=== PATIENT | female | born 1945 | race American Indian/Alaskan Native ===

== ENCOUNTER 2016-12-16 12:01 | Observation (INO) | payer MEDICARE ==
[2016-12-16] MEDS ORDERED: Albuterol-Ipratrop 3 mg / 0.5 (3 ml) UD IH STA (13:10)
[2016-12-16] MEDS ORDERED: Sodium Chloride 0.9% 1,000 ML IV STA (13:10)
[2016-12-16 13:43] LABS: VENOUS BLOOD GAS BASE EXCESS 1.5 mmol/L (0.0-2.0); VENOUS BLOOD GAS PCO2 49 mmHg (40-60); VENOUS BLOOD PH 7.36 (7.32-7.43)
--- NOTE | 2016-12-16 13:43 | ED PDOC ---
HPI: CCC, URI, Sore Throat Chief Complaint (Provider): Cough History Per: Patient History/Exam Limitations: no limitations Onset/Duration Of Symptoms: Days (4) Current Symptoms Are (Timing): Still Present Location Of Pain: None Sick Contacts (Context): None Associated Symptoms: Chills, Cough, Sputum (clear), Nasal Congestion. denies: Fever, Sore Throat, Neck Pain, Nausea, Vomiting, Diarrhea Ear Symptoms: Bilateral: None Additional History Per: Patient <Jayna Viera - Last Filed: 12/16/16 15:09> <Tiburcio Vazquez - Last Filed: 12/16/16 15:30> Time Seen by Provider: 12/16/16 12:47 Chief Complaint (Nursing): Flu-like Symptoms Additional Complaint(s): 71 yo F with hx of HTN, DMII, OA, and asthma presents to ED with c/o cough x 4 days occasionally productive of clear sputum. Pt denies associated fever. Denies chest pain or SOB. States she has a hx of asthma and used to use symbicort and albuterol, but ran out of her inhalers > 1 month ago. Denies chest tightness or wheezing. Denies abdominal pain, N/V/D/C, but does c/o decreased appetite and malaise. ( Jayna Viera) Supervising Attending Note <Jayna Viera - Last Filed: 12/16/16 15:09> - Supervising Attending Note The Documented history was done by the: [facility] The documented physical exam was done by the: [facility] The documented procedures were done by the: [facility] - Attestation: I have personally seen and examined this patient.: Yes I have fully participated in the care of the patient.: Yes I have reviewed all pertinent clinical information, including history, physical exam and plan: Yes <Tiburcio Vazquez - Last Filed: 12/16/16 15:30> - Notes: Notes:: Cough. Weakness. (Tiburcio Vazquez) Past Medical History Reviewed: Historical Data, Nursing Documentation, Vital Signs - Medical History PMH: Asthma, HTN - Surgical History Surgical History: Appendectomy - Family History Family History: States: Unknown Family Hx - Immunization History Hx Tetanus Toxoid Vaccination: No Hx Influenza Vaccination: No Hx Pneumococcal Vaccination: Yes (2012) <Jayna Viera - Last Filed: 12/16/16 15:09> <Tiburcio Vazquez - Last Filed: 12/16/16 15:30> Vital Signs: Last Vital Signs Temp 97 F L 12/16/16 12:15 Pulse 87 12/16/16 12:15 Resp 16 12/16/16 12:15 BP 93/55 L 12/16/16 12:15 Pulse Ox 97 12/16/16 15:12 - Home Medications Home Medications: Ambulatory Orders Medication Instructions Recorded Albuterol Sulfate [Albuterol Hfa] 0.09 mg IH QID #1 unit 06/24/15 Aspirin 81 mg PO DAILY 06/24/15 Calcium Carbonate [Oscal] 500 mg PO DAILY 06/24/15 Diclofenac Sodium [Voltaren Gel] 1 appl TP QID 06/24/15 Diclofenac Sodium [Voltaren] 50 mg PO BID 06/24/15 Hydrochlorothiazide 12.5 mg PO DAILY 06/24/15 Mometasone Furoate [Nasonex] 0.05 mg NS DAILY 06/24/15 Montelukast Sodium [Singulair] 10 mg PO DAILY 06/24/15 Omeprazole [PrilOSEC] 40 mg PO DAILY 06/24/15 Oxycodone HCl/Acetaminophen 1 tab PO Q6 PRN 06/24/15 [Endocet 325 mg-10 mg] Prednisone 60 mg PO DAILY #12 tab 06/24/15 amLODIPine [Norvasc] 5 mg PO DAILY 06/24/15 - Allergies Allergies/Adverse Reactions: Allergies Allergy/AdvReac Type Severity Reaction Status Date / Time Penicillins Allergy RASH Verified 12/16/16 12:15 Curb-65 Severity Score - CURB-65 Severity Score Confusion: No Respiratory Rate greater than/equal to 30: No Systolic BP <90 or Diastolic BP less than/equal 60mmHg: Yes Age >64: Yes Curb-65 Score: 2 Percentage 30-day mortality: 6.8% <Jayna Viera - Last Filed: 12/16/16 15:09> Review of Systems Constitutional: Positive for: Chills, Malaise. Negative for: Fever ENT: Positive for: Nose Congestion. Negative for: Throat Pain Cardiovascular: Negative for: Chest Pain, Palpitations, Orthopnea, Light Headedness Respiratory: Positive for: Cough, Sputum (clear). Negative for: Shortness of Breath, Hemoptysis, SOB with Exertion, Pleuritic Pain, Wheezing Gastrointestinal: Negative for: Nausea, Vomiting, Abdominal Pain, Diarrhea, Constipation Neurological: Negative for: Weakness, Numbness, Altered Mental Status, Headache , Dizziness <Lara Vierauja - Last Filed: 12/16/16 15:09> Physical Exam - Reviewed Nursing Documentation Reviewed: Yes Vital Signs Reviewed: Yes - Physical Exam Appears: Positive for: No Acute Distress Skin: Positive for: Normal Color, Warm, Dry. Negative for: Diaphoresis Eye Exam: Positive for: Normal appearance, EOMI, PERRL ENT: Positive for: Pharynx Is (clear), Nasal Congestion Neck: Positive for: Normal, Painless ROM Cardiovascular/Chest: Positive for: Regular Rate, Rhythm Respiratory: Positive for: Decreased Breath Sounds (L>R), Crackles (fine, dry crackles at b/l bases), Wheezing (mild, diffuse). Negative for: Accessory Muscle Use, Rales, Rhonchi, Respiratory Distress Gastrointestinal/Abdominal: Positive for: Normal Exam, Soft. Negative for: Tenderness Extremity: Negative for: Pedal Edema Neurologic/Psych: Positive for: Alert, Oriented <Lara Vierauja - Last Filed: 12/16/16 15:09> - Physical Exam Cardiovascular/Chest: Positive for: Regular Rate, Rhythm, Chest Non Tender Respiratory: Positive for: Decreased Breath Sounds, Wheezing (mild b/l). Negative for: Accessory Muscle Use <Tiburcio Vazquez - Last Filed: 12/16/16 15:30> - Laboratory Results Result Diagrams: 12/16/16 13:35 12/16/16 13:35 - ECG O2 Sat by Pulse Oximetry: 97 - Radiology X-Ray: Interpreted by Me, Viewed By Me (d/w Dr. Vazquez) X-Ray Interpretation: No Acute Disease <VieraJayna chandra - Last Filed: 12/16/16 15:09> - Laboratory Results Result Diagrams: 12/16/16 13:35 12/16/16 13:35 Interpretation Of Abn Labs: flu - Radiology X-Ray: Interpreted by Me, Viewed By Me X-Ray Interpretation: No Acute Disease <Tiburcio Vazquez - Last Filed: 12/16/16 15:30> - Progress ED Course And Treament: CBC CMP BNP Troponin VBG Flu swab CXR Duoneb Tessalon NS 1L (pt noted to be hypotensive) Labs reviewed. Pt does not meet criteria for SIRS, therefore is not septic. CXR negative for pneumonia Flu positive in elderly female with generalized weakness and initial hypotension. Will admit to medical service (pt's PMD is Dr. Mendoza). Dr. Paredes and resident- Dr. Eli, made aware of admission (Jayna Viera) 1528: Spoke with Dr. Paredes. Will admit tele obs. Dehydration. Fluids should help improve BP. AAOx3. Pain free. (Tiburcio Vazquez) Disposition - Patient ED Disposition Is Patient to be Admitted: Yes - Disposition Disposition Time: 15:11 <Jayna Viera - Last Filed: 12/16/16 15:09> - Patient ED Disposition Is Patient to be Admitted: Yes Counseled Patient/Family Regarding: Studies Performed, Diagnosis - Disposition Disposition Time: 15:28 - Pt Status Changed To: Hospital Disposition Of: Observation - POA Present On Arrival: None <Tiburcio Vazquez - Last Filed: 12/16/16 15:30> - Clinical Impression Clinical Impression: Influenza, Generalized weakness, Dehydration - Disposition Condition: STABLE
[2016-12-16 13:51] LABS: BASO # 0.1 K/uL (0.0-0.2); EOS % 0.3 % (0.0-4.0); HEMATOCRIT 40.4 % (34.0-47.0); LYMPH # 1.4 K/uL (1.0-4.3); LYMPH % 28.5 % (20.0-40.0); MEAN CELL VOLUME 86.2 fl (81.0-99.0); MEAN CORPUSCULAR HEMOGLOBIN 27.9 pg (27.0-31.0); MEAN CORPUSCULAR HGB CONC 32.4 g/dL (33.0-37.0); MEAN PLATELET VOLUME 9.6 fl (7.2-11.7); MONO # 0.9 K/uL (0.0-0.8); MONO % 18.7 % (0.0-10.0); NEUT # 2.6 K/uL (1.8-7.0); NEUT % 51.5 % (50.0-75.0); NRBC % 0.1 % (0.0-0.0); RED CELL DISTRIBUTION WIDTH 14.3 % (11.5-14.5); WHITE BLOOD COUNT 5.1 K/uL (4.8-10.8)
[2016-12-16 14:04] LABS: ALB/GLOB RATIO 1.1 (1.0-2.1); ALKALINE PHOSPHATASE 62 U/L (38-126); ALT/SGPT 37 U/L (9-52); AST/SGOT 32 U/L (14-36); BILIRUBIN,TOTAL 0.3 mg/dl (0.2-1.3); BLOOD UREA NITROGEN 20 mg/dl (7-17); CALCIUM 10.7 mg/dL (8.4-10.2); CARBON DIOXIDE 24 mmol/L (22-30); CHLORIDE 102 mmol/L (98-107); GFR AFRICAN-AMERICAN 54; GLUCOSE,RANDOM 116 mg/dL (65-105); POTASSIUM 4.7 MMOL/L (3.6-5.0); SODIUM 139 mmol/l (132-148); TOTAL PROTEIN 7.5 G/DL (6.3-8.2)
[2016-12-16] MEDS ORDERED: Albuterol-Ipratrop 3 mg / 0.5 (3 ml) UD ONE (14:12)
--- NOTE | 2016-12-16 15:00 | RAD ---
HISTORY: dyspnea COMPARISON: None available. TECHNIQUE: Chest, one view. FINDINGS: Examination limited by habitus. LUNGS: No focal consolidation. Please note that chest x-ray has limited sensitivity for the detection of pulmonary masses. PLEURA: No significant pleural effusion identified. No definite pneumothorax . CARDIOVASCULAR: The cardiomediastinal silhouette appears within normal limits of size. OSSEOUS STRUCTURES: No acute osseous abnormality identified. VISUALIZED UPPER ABDOMEN: Unremarkable. OTHER FINDINGS: None. IMPRESSION: No focal consolidation, significant pleural effusion, or definite pneumothorax identified.
[2016-12-16] MEDS ORDERED: Albuterol-Ipratrop 3 mg / 0.5 (3 ml) UD INH PRN (16:02)
[2016-12-16] MEDS ORDERED: Dextrose 50% SYRINGE Inj (50 ml) IV PRN (16:04)
[2016-12-16] MEDS ORDERED: Glucagon Recombinant 1 mg Inj IM PRN (16:04)
--- NOTE | 2016-12-16 16:20 | CP.PCM.HP ---
History of Present Illness - History of Present Illness History of Present Illness: Pt is a 71 yo F with hx of HTN, DMII, OA, and asthma presents to ED with cc of cough for 4 days occasionally productive of clear sputum, with decreased appetite and malaise and did not get the flu vaccine this season. Pt denies associated fever, chest pain or SOB. States she has a hx of asthma and used to use symbicort and albuterol, but ran out of her inhaler a while ago. Denies chest tightness or wheezing. Denies abdominal pain, N/V/D/C. Present on Admission - Present on Admission Any Indicators Present on Admission: No Review of Systems - Review of Systems All systems: reviewed and no additional remarkable complaints except Review of Systems: per HPI Past Patient History - Infectious Disease Hx of Infectious Diseases: None - Past Social History Smoking Status: Former Smoker - CARDIAC Hx Hypertension: Yes - PULMONARY Hx Asthma: Yes - HEENT Other/Comment: Seasonal allergies - GASTROINTESTINAL Hx Gastroesophageal Reflux: Yes - PSYCHIATRIC Hx Substance Use: No - SURGICAL HISTORY Hx Appendectomy: Yes - ANESTHESIA Hx Anesthesia: Yes Hx Anesthesia Reactions: No Meds Allergies/Adverse Reactions: Allergies Allergy/AdvReac Type Severity Reaction Status Date / Time Penicillins Allergy RASH Verified 12/16/16 12:15 Physical Exam - Head Exam Head Exam: NORMOCEPHALIC - Eye Exam Eye Exam: Normal appearance - ENT Exam ENT Exam: Mucous Membranes Moist - Respiratory Exam Respiratory Exam: Decreased Breath Sounds, Wheezes - Cardiovascular Exam Cardiovascular Exam: REGULAR RHYTHM, +S1, +S2 - GI/Abdominal Exam GI & Abdominal Exam: Normal Bowel Sounds, Soft. absent: Tenderness - Extremities Exam Extremities exam: Negative for: calf tenderness, pedal edema - Neurological Exam Neurological exam: Alert, CN II-XII Intact, Oriented x3 - Skin Skin Exam: Normal Color Results - Vital Signs Recent Vital Signs: Last Vital Signs Temp 99.6 F 12/16/16 16:01 Pulse 86 12/16/16 16:01 Resp 16 12/16/16 16:01 BP 112/51 L 12/16/16 16:01 Pulse Ox 95 12/16/16 16:01 - Labs Result Diagrams: 12/16/16 13:35 12/16/16 13:35 Assessment & Plan - Assessment and Plan (Free Text) Assessment: 71 y/o non-insulin dependent Type II diabetic , hypertensive being admitted for influenza and weakness due to dehydration Plan: 1. Influenza type B positive Symptoms started on thursday , no benefit to starting Tamiflu symptomatic management Albuterol prn 2. Weakness due to dehydration IVF for hydration 3.Non-Insulin dependent Diabetes accucheck metformin SSI 4. HTN continue with home med 5.Diet- Diabetic Diet 6. DVT prophylaxis- Lovenox SC
[2016-12-16] MEDS: Sodium Chloride 0.9% 1,000 ML IV SCH (16:44)
[2016-12-16] MEDS ORDERED: DICLOFENAC SODIUM APPL TP SCH (17:00)
[2016-12-16 17:15] VITALS: BMI 34.9
[2016-12-16] MEDS: Insulin Regular 100 units/ml SC SCH ×2 (17:47→22:53)
[2016-12-17] MEDS: Sodium Chloride 0.9% 1,000 ML IV SCH ×2 (05:31→09:15)
[2016-12-17] MEDS: Insulin Regular 100 units/ml SC SCH ×2 (06:47→12:10)
--- NOTE | 2016-12-17 07:45 | CARD ---
APPROVED REPORT EKG Measurement Heart [id number] <Conclusion> Normal sinus rhythm Low voltage QRS Cannot rule out Anterior infarct, age undetermined Abnormal ECG
[2016-12-17 08:17] VITALS: RESP 20
[2016-12-17] MEDS ORDERED: guaiFENesin DM 100 mg-10 mg/5 ml UD PO PRN (08:45)
[2016-12-17] MEDS ORDERED: Pantoprazole 40 mg EC Tab PO SCH (09:00)
[2016-12-17] MEDS ORDERED: Enoxaparin 40 mg Syringe SC SCH (09:00)
[2016-12-17 12:28] VITALS: BP 126/77; PULSE 69; TEMP 98.4; O2SAT 100
--- NOTE | 2016-12-17 13:45 | CP.PCM.DIS ---
Provider - Provider Date of Admission: 12/16/16 14:58 Attending physician: Patrick Paredes MD Time Spent in preparation of Discharge (in minutes): 20 Diagnosis - Discharge Diagnosis (1) Influenza Status: Acute Hospital Course - Lab Results Lab Results: Most Recent Lab Values WBC 5.1 K/uL (4.8-10.8) 12/16/16 13:35 RBC 4.69 Mil/uL (3.80-5.20) 12/16/16 13:35 Hgb 13.1 g/dL (12.0-16.0) 12/16/16 13:35 Hct 40.4 % (34.0-47.0) 12/16/16 13:35 MCV 86.2 fl (81.0-99.0) 12/16/16 13:35 MCH 27.9 pg (27.0-31.0) 12/16/16 13:35 MCHC 32.4 g/dL (33.0-37.0) L 12/16/16 13:35 RDW 14.3 % (11.5-14.5) 12/16/16 13:35 Plt Count 225 K/uL (130-400) 12/16/16 13:35 MPV 9.6 fl (7.2-11.7) 12/16/16 13:35 Neut % (Auto) 51.5 % (50.0-75.0) 12/16/16 13:35 Lymph % (Auto) 28.5 % (20.0-40.0) 12/16/16 13:35 [place] % (Auto) 18.7 % (0.0-10.0) H 12/16/16 13:35 Eos % (Auto) 0.3 % (0.0-4.0) 12/16/16 13:35 Baso % (Auto) 1.0 % (0.0-2.0) 12/16/16 13:35 Neut # 2.6 K/uL (1.8-7.0) 12/16/16 13:35 Lymph # 1.4 K/uL (1.0-4.3) 12/16/16 13:35 [place] # 0.9 K/uL (0.0-0.8) H 12/16/16 13:35 Eos # 0.0 K/uL (0.0-0.7) 12/16/16 13:35 Baso # 0.1 K/uL (0.0-0.2) 12/16/16 13:35 pO2 19 mm/Hg (30-55) L 12/16/16 13:35 VBG pH 7.36 (7.32-7.43) 12/16/16 13:35 VBG pCO2 49 mmHg (40-60) 12/16/16 13:35 VBG HCO3 24.2 mmol/L 12/16/16 13:35 VBG Total CO2 29.2 mmol/L (22-28) H 12/16/16 13:35 VBG O2 Sat (Calc) 27.6 % (40-65) L 12/16/16 13:35 VBG Base Excess 1.5 mmol/L (0.0-2.0) 12/16/16 13:35 VBG Potassium 4.4 mmol/L (3.6-5.2) 12/16/16 13:35 Sodium 132.0 mmol/L (132-148) 12/16/16 13:35 Chloride 104.0 mmol/L (98-107) 12/16/16 13:35 Glucose 113 mg/dL (65-105) H 12/16/16 13:35 Lactate 1.1 mmol/L (0.7-2.1) 12/16/16 13:35 FiO2 21.0 % 12/16/16 13:35 Sodium 139 mmol/l (132-148) 12/16/16 13:35 Potassium 4.7 MMOL/L (3.6-5.0) 12/16/16 13:35 Chloride 102 mmol/L (98-107) 12/16/16 13:35 Carbon Dioxide 24 mmol/L (22-30) 12/16/16 13:35 Anion Gap 19 (10-20) 12/16/16 13:35 BUN 20 mg/dl (7-17) H 12/16/16 13:35 Creatinine 1.2 mg/dL (0.7-1.2) 12/16/16 13:35 Est GFR ( Amer) 54 12/16/16 13:35 Est GFR (Non-Af Amer) 44 12/16/16 13:35 POC Glucose (mg/dL) 115 mg/dL (65-110) H 12/17/16 11:11 Random Glucose 116 mg/dL (65-105) H 12/16/16 13:35 Calcium 10.7 mg/dL (8.4-10.2) H 12/16/16 13:35 Total Bilirubin 0.3 mg/dl (0.2-1.3) 12/16/16 13:35 AST 32 U/L (14-36) 12/16/16 13:35 ALT 37 U/L (9-52) 12/16/16 13:35 Alkaline Phosphatase 62 U/L (38-126) 12/16/16 13:35 Troponin I < 0.0120 ng/mL (0.00-0.120) 12/16/16 13:35 NT-Pro-B Natriuret Pep 104 pg/ml (0-900) 12/16/16 13:35 Total Protein 7.5 G/DL (6.3-8.2) 12/16/16 13:35 Albumin 3.9 g/dL (3.5-5.0) 12/16/16 13:35 Globulin 3.6 gm/dL (2.2-3.9) 12/16/16 13:35 Albumin/Globulin Ratio 1.1 (1.0-2.1) 12/16/16 13:35 Venous Blood Potassium 4.4 mmol/L (3.6-5.2) 12/16/16 13:35 Influenza Typ A,B (EIA) Pos for influenza b (NEGATIVE) H 12/16/16 14:10 - Hospital Course Hospital Course: Pt was admitted for observation for flu (no indication for Tamiflu as pt had been sick for more than 48 hours), giving symptomatic treatment, doing well. being discharged home to follow up with PCP after 1-2 weeks. Pt advised to keep hydrated and rest Discharge Exam - Head Exam Head Exam: NORMOCEPHALIC - Eye Exam Eye Exam: Normal appearance - ENT Exam ENT Exam: Mucous Membranes Moist - Respiratory Exam Respiratory Exam: NORMAL BREATHING PATTERN - Cardiovascular Exam Cardiovascular Exam: REGULAR RHYTHM, +S1, +S2 - GI/Abdominal Exam GI & Abdominal Exam: Normal Bowel Sounds, Soft - Extremities Exam Extremities exam: normal inspection - Neurological Exam Neurological exam: Alert, CN II-XII Intact, Oriented x3 Discharge Plan - Discharge Medications Prescriptions: Promethazine DM [Phenergan DM Syrup] 10 ml PO Q6 PRN #1 bottle PRN Reason: Cough - Follow Up Plan Condition: STABLE Disposition: HOME/ ROUTINE Patient education suggested?: Yes Instructions: Influenza (GEN), Weakness (ED) Additional Instructions: Please take cough syrup as needed follow up with your PCP in 1-2weeks Referrals: Patrick Paredes MD [Staff Provider] -
== END 2016-12-17 14:02 | disposition home or self-care (01) ==
LOC: H.ER 12:01 → H.ERHOLD 14:58 → H.TEL 16:47
PROVIDERS: ADMIT Family Medicine; ATTEND Family Medicine
DX: J10.1 Influenza due to other identified influenza virus with other respiratory manifestations (principal); Z87.891 Personal history of nicotine dependence; E11.9 Type 2 diabetes mellitus without complications; E86.0 Dehydration; I10 Essential (primary) hypertension; J45.909 Unspecified asthma, uncomplicated; Z88.0 Allergy status to penicillin; M19.90 Unspecified osteoarthritis, unspecified site
CPT/HCPCS: 71010; 80053; 82803; 82948; 83880; 84484; 85025; 87804; 93005; 96360; 99284; G0378; J1650; J7040